=== PATIENT | female | born 1960 | race Hispanic/Latino ===

== ENCOUNTER 2024-03-06 08:34 | Outpatient (CLI) | payer OTHER | END 2024-03-06 08:35 | disposition home or self-care (01) | LOC: BICMAMMO 08:34 | PROVIDERS: ATTEND Internal Medicine | DX: M81.0 Age-related osteoporosis without current pathological fracture (principal); M85.851 Other specified disorders of bone density and structure, right thigh; M85.852 Other specified disorders of bone density and structure, left thigh | CPT/HCPCS: 77080 ==